=== PATIENT | female | born 1950 | race Caucasian/White ===

== ENCOUNTER 2017-01-01 05:00 | Emergency (ER) | payer MEDICARE, MEDICAID ==
[2017-01-01 05:09] LABS: HEMATOCRIT 40.7 % (35.0-47.0); HEMOGLOBIN 13.1 gm/dl (11.6-16.0); MEAN CELL VOLUME 108.2 fl (81-97); MEAN CORPUSCULAR HEMOGLOBIN 34.8 pg (27-33); MEAN CORPUSCULAR HGB CONC 32.2 g/dl (32-36); MEAN PLATELET VOLUME 9.7 fl (7.4-10.4); PLATELET COUNT 89 K/uL (130-400); RED BLOOD COUNT 3.76 M/uL (3.80-5.40); RED CELL DISTRIBUTION WIDTH 14.8 % (11.5-14.5); WHITE BLOOD COUNT W/O DIFF 12.3 K/uL (4.2-12.2)
[2017-01-01 05:20] LABS: INR 1.36; PROTHROMBIN TIME (PATIENT) 14.7 SECONDS (9.5-12.1)
[2017-01-01 05:23] LABS: BLOOD UREA NITROGEN 43 mg/dL (8-23); CREATININE 2.6 mg/dL (0.5-0.9); EST GLOMERULAR FILTRATION RATE 20 mL/min; GLUCOSE,RANDOM 188 mg/dL (74-109)
[2017-01-01 05:29] LABS: CKMB 7.8 ng/mL (<3.77); CREATINE PHOSPHOKINASE 391 U/L (26-192); TROPONIN I < 0.30 ng/mL (0.00-0.300)
--- NOTE | 2017-01-01 05:33 | Emergency Department Record ---
History of Present Illness - General Chief Complaint: Code Adult Stated Complaint: CARDIAC ARREST Time Seen by Provider: 01/01/17 05:04 Source: EMS Mode of Arrival: EMS Limitations: Other - History of Present Illness Initial Comments: The patient was brought to the ER by EMS due to being found by staff at the [facility] agonal breathing. EMS arrived and also found the patient with agonal breaths. They immediately started CPR due to the patient quickly being found in asystole. She did develop a pulse briefly but then went into asystole en route. On arrival to the ER she has been pulseless and in asytole for approx. 25 minutes. The patient has never been to this hospital and no hx was obtained by EMS. MD Complaint: Collapsed during rest, Stopped breathing Onset/Timin -: Hour(s) Travel Screening - Travel/Exposure Within Last 30 Days Have you traveled within the last 30 days?: No Review of Systems ROS unobtainable: Due to endotracheal tube, Due to mental status Past Medical History - SOCIAL HISTORY Smoking Status: Unknown if ever smoked Family Medical History Any Significant Family History?: No Physical Exam - General General Appearance: Other (The patient is unresponsive) - Head Head exam: Atraumatic, Normocephalic - Eye Eye exam: Other (pupils are fixed and unresponsive.) - Neck Neck exam: Normal inspection - Respiratory Respiratory exam: Normal lung sounds bilaterally (when ventilated.) - Cardiovascular Cardiovascular Exam: Regular rate, Normal rhythm, Systolic murmur - GI/Abdominal GI/Abdominal exam: Soft - Extremities Extremities exam: Normal inspection, Full ROM, Normal capillary refill. negative: Tenderness - Neurological Neurological exam: Other (The patient is unresponsive and intubated.) Course - Reevaluation(s) Reevaluation #1: The patient did have intermittent V-Tach and then bradycardia. She was given Amiodarone IV and then a drip. Her HR was clearly epinephrine dependent. She continued to go into asytole which did improve with IV EPinephrine. At no time was she responsive but she did have an intermittent weak pulse. She then went bradycardic and then asystolic for a prolonged time with fixed and dilated pupils. She was not breathing with any agonal breaths. After 5 minutes of asystole we did call the code. The time of was 5:39. 01/01/17 05:45 01/01/17 06:12 Medical Decision Making - Data Complexity MDM Data: Labs Ordered and/or Reviewed, EKG Ordered and/or Reviewed - Lab Data Result diagrams: 01/01/17 05:06 01/01/17 05:06 Lab Results 01/01/17 01/01/17 01/01/17 Range/Units 05:06 05:06 05:06 WBC 12.3 H (4.2-12.2) K/uL RBC 3.76 L (3.80-5.40) M/uL Hgb 13.1 (11.6-16.0) gm/dl Hct 40.7 (35.0-47.0) % MCV 108.2 H (81-97) fl MCH 34.8 H (27-33) pg MCHC 32.2 (32-36) g/dl RDW 14.8 H (11.5-14.5) % Plt Count 89 L (130-400) K/uL MPV 9.7 (7.4-10.4) fl Neutrophils % 59.0 (47-80) % Band Neutrophils % 8.0 H (0-5) % Eosinophils % Not Reportable Basophils % Not Reportable Lymphocytes 25.0 (16-45) % Monocytes 8.0 (0-9) % Basophils 0.0 (0-6) % Eosinophil Count 0.0 (0-6) % PT 14.7 H (9.5-12.1) SECONDS INR 1.36 APTT 35.00 (24.5-39.1) SECONDS Sodium 149 H (136-145) mmol/L Potassium 3.6 (3.4-4.5) mmol/L Chloride 104 (98-107) mmol/L Carbon Dioxide 17.0 L (22-29) mmol/L Anion Gap 28.0 H (7-16) BUN 43 H (8-23) mg/dL Creatinine 2.6 H (0.5-0.9) mg/dL Estimated GFR 20 mL/min Random Glucose 188 H (74-109) mg/dL Calcium 9.3 (8.8-10.2) mg/dL - EKG Data -: EKG Interpreted by Me (Afib with LBBB.) Disposition Clinical Impression: Cardiac arrest Forms: Patient Portal Access Time of Disposition: 05:49 Quality - Quality Measures Quality Measures: N/A - Blood Pressure Screening View Details: Yes Does Patient Have Any of the Following: No, Active Dx of HTN Systolic Measurement: ~ Screening for High Blood Pressure: Patient Exclusion, Hx of HTN [G9744]
[2017-01-01] MEDS ORDERED: AMIODARONE 360MG/200ML MAINT 360 MG/200 ML ML IV ONE (05:56)
[2017-01-01] MEDS ORDERED: EPINEPHRINE HCL 0.1 MG/ML 10ML SYR IVP ONE ×2 (05:57→05:58)
[2017-01-01] MEDS ORDERED: CALCIUM CHLORIDE IVP ONE (05:58)
== END 2017-01-01 09:04 | disposition expired ==
LOC: ER 05:00
DX: I46.9 Cardiac arrest, cause unspecified (principal)
CPT/HCPCS: 92950 ×2; 99291 ×2; 96365; 96375; 82550; 85730; 85610; 82553; 84484; 80048; 85027; 94002; 93005; 93010; J0282